=== PATIENT | male | born 1945 | race African-American/Black ===

== ENCOUNTER → 2017-01-13 | Outpatient (CLI) | payer MEDICARE, BC ==
[2015-12-25 14:55] VITALS: BP 161/75
[~2017-01-13] MED LIST: ASPI81TA2 PO; DOCU-27 PO; FLUT100D IH; OXYC-323 PO; PRAV10TA2 PO; PROAIR HFA8.5 GM IH; PSYL660P18 PO
--- NOTE | 2017-01-13 10:59 | RAD ---
PROCEDURE MR of the left knee HISTORY Generalized knee pain. COMPARISON None FINDINGS No evidence of a medial meniscal tear. There is a severe degenerative tear of the lateral meniscus. The anterior cruciate ligament and the posterior cruciate ligament are intact. Medial collateral ligament is intact. Iliotibial band unremarkable. Fibular collateral ligament, biceps femoris tendon and popliteus tendon are intact. The extensor mechanism is intact. Trace joint fluid. No evidence of an osteochondral loose body. There is a cyst or ganglion within the lateral aspect of the infrapatellar fat. Severe chondromalacia at the posterior aspect of the lateral joint compartment. Mild medial compartment degenerative change. Mild degenerative changes at the patellofemoral joint compartment. No evidence of bone lesion or acute fracture. No acute soft tissue injury. Tiny intraosseous subchondral cyst at the posterior medial tibial plateau. Mild degenerative change at the fabella femoral articulation. IMPRESSION 1. Lateral meniscal tear. 2. Primary osteoarthritis. Electronically signed by: Logan Ornelas MD (Jan 13, 2017 10:58:13)
== END | disposition home or self-care (01) ==
LOC: MRI 07:48
PROVIDERS: ATTEND Specialist
DX: M17.12 Unilateral primary osteoarthritis, left knee (principal); S83.282A Other tear of lateral meniscus, current injury, left knee, initial encounter
CPT/HCPCS: 73721

== ENCOUNTER 2017-01-22 12:59 | Emergency (ER) | payer OTHER, MEDICARE, BC ==
[~2017-01-22] VITALS: Ht 167.6 cm; Wt 65.8 kg
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
[2017-01-22] MEDS ORDERED: FENTANYL PF 100 MCG/2 ML VIAL. IV ONE (14:00)
[2017-01-22] MEDS ORDERED: IV NORMAL SALINE 1000ML BAG 1,000 ML IV SCH (14:00)
[2017-01-22 14:40] LABS: BASO % 1 % (0-3); EOS % 1 % (0-3); HEMATOCRIT 43.1 % (39.0-53.0); HEMOGLOBIN 14.4 g/dL (13.0-17.5); LYMPH # 0.5 x10^3/uL (1.0-4.8); LYMPH % 11 % (24-48); MEAN CORPUSCULAR HEMOGLOBIN 34 pg (25-35); MEAN CORPUSCULAR HGB CONC 33 g/dL (31-37); MEAN CORPUSCULAR VOLUME 100 fL (79-100); MONO % 10 % (0-9); NEUT % 77 % (31-73); PLATELET COUNT 270 x10^3/uL (140-400); RED CELL DISTRIBUTION WIDTH 14.1 % (11.5-14.5); WHITE BLOOD COUNT 4.9 x10^3/uL (4.0-11.0)
[2017-01-22 14:41] LABS: BILIRUBIN,URINE NEGATIVE (NEG); GLUCOSE,URINE NEGATIVE (NEG); NITRITE,URINE NEGATIVE (NEG); PROTEIN,URINE NEGATIVE (NEG-TRACE); UROBILINOGEN,URINE 0.2 mg/dL (0.2 mg/dL)
[2017-01-22 14:45] LABS: INR 1.2 (0.8-1.1); PROTHROMBIN TIME PATIENT 14.5 SEC (11.7-14.0)
[2017-01-22 14:54] LABS: BACTERIA,URINE 0 /HPF (0-FEW); SQUAMOUS EPITHELIAL CELL,UR OCC /LPF; WBC,URINE 0 /HPF (0-4)
[2017-01-22 15:16] LABS: ALBUMIN 3.9 g/dL (3.4-5.0); CALCIUM 9.5 mg/dL (8.5-10.1); TOTAL PROTEIN 6.8 g/dL (6.4-8.2)
[2017-01-22 15:17] LABS: CREATININE 1.1 mg/dL (0.7-1.3); DIRECT BILIRUBIN 0.1 mg/dL (0.0-0.2); GFR 79.4; TOTAL BILIRUBIN 0.4 mg/dL (0.2-1.0)
[2017-01-22 15:28] LABS: CKMB INDEX 0.8 % (0-4); CKMB MASS 1.9 ng/mL (0.0-3.6)
[2017-01-22] MEDS ORDERED: CONTRAST GIVEN MC PRN (15:30)
[2017-01-22] MEDS ORDERED: IOHEXOL 300 MG/ML 75 ML VIAL IV ONE (15:30)
[2017-01-22 15:39] LABS: BARBITURATES NEG (NEG); BENZODIAZEPINES NEG (NEG); COCAINE NEG (NEG); METHADONE NEG (NEG); OPIATES NEG (NEG)
[2017-01-22 15:40] LABS: CANNABINOIDS POS (NEG); ETHANOL, URINE NEG (NEG); PHENCYCLIDINE NEG (NEG)
[2017-01-22 15:41] LABS: POTASSIUM 4.6 mmol/L (3.5-5.1)
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
[2017-01-22] MEDS ORDERED: CYCL10TA2 PO (16:22)
[2017-01-22] MEDS ORDERED: HYDR-971 PO (16:22)
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
[2017-01-22 16:29] VITALS: BP 179/85
== END 2017-01-22 16:29 | disposition home or self-care (01) ==
LOC: ER 12:59
DX: M25.512 Pain in left shoulder (principal); M25.561 Pain in right knee; M25.562 Pain in left knee; M54.2 Cervicalgia; R51 Headache; Z88.5 Allergy status to narcotic agent; Z88.6 Allergy status to analgesic agent; Z88.8 Allergy status to other drugs, medicaments and biological substances; V43.52XA Car driver injured in collision with other type car in traffic accident, initial encounter; Y93.I9 Activity, other involving external motion; Y92.410 Unspecified street and highway as the place of occurrence of the external cause; Y99.8 Other external cause status
CPT/HCPCS: 36415; 70450; 71260; 72125; 73030; 73564; 74177; 80048; 80076; 80305; 81001; 82553; 83605; 83690; 84484; 85027; 85610; 85730; 93005; 96361; 96374; 99285; G0480; J3010; J7030; Q9967; G0481